=== PATIENT | female | born 1945 | race Caucasian/White ===

== ENCOUNTER → 2017-10-08 | Outpatient (CLI) | payer MEDICARE ==
--- NOTE | 2017-10-09 15:46 | DIREP ---
PROCEDURE: BONE DENSITY PERIPHERAL INDICATIONS: M15.1 OSTEOARTHROSIS COMPARISON: None. FINDINGS: Proximal right femur bone mineral density (BMD) (g/cm2): 0.744 Right Femur T-score (standard deviation relative to young adult mean BMD): -2.1 Right Femur Z-score (standard deviation relative to age-matched control group): -0.2 Proximal left femur bone mineral density (BMD) (g/cm2): 0.702 Left Femur T-score (standard deviation relative to young adult mean BMD): -2.4 Left Femur Z-score (standard deviation relative to age-matched control group): - 0.5 Lumbar (L1-L4) bone mineral density (BMD) (g/cm2): 1.087 Lumbar T-score (standard deviation relative to young adult mean BMD): -0.9 Lumbar Z-score (standard deviation relative to age-matched control group): 1.3 VFA T8-L3: Mild levoscoliosis. FRAX 10-Year Probability of Fracture: Major Osteoporotic Fracture: 14.2% Hip Fracture: 4.4% Change since prior exam (%): Femur: Not applicable. Spine: Not applicable. Change since oldest prior exam (%): Femur: Not applicable. Spine: Not applicable. CONCLUSION: 1. Osteopenia bilateral hips. 2. Normal bone mineral density lumbar spine. *Note: The Z-score is provided for informational purposes. The T-score is preferable for clinical decisions. When comparing exams, a change of >4% is considered statistically significant. SUGGESTED RECOMMENDATIONS: Normal & Osteopenia: Consideration should be given to use of calcium supplementation, daily multiple vitamins and adequate exercise, as preventive measures against osteoporosis, if clinically indicated. Osteoporosis & Severe Osteoporosis: In addition to the above, consideration should be given to medical therapy against osteoporosis, if clinically indicated. Dictated by: Louie Rico M.D. on 10/08/2017 at 03:28 PM [facility]ENTERLotus
== END | disposition home or self-care (01) ==
LOC: BD 13:08
PROVIDERS: ATTEND Specialist
DX: M85.88 Other specified disorders of bone density and structure, other site (principal); M15.1 Heberden's nodes (with arthropathy); M47.22 Other spondylosis with radiculopathy, cervical region; M20.11 Hallux valgus (acquired), right foot; M20.12 Hallux valgus (acquired), left foot; G56.23 Lesion of ulnar nerve, bilateral upper limbs; G25.81 Restless legs syndrome; K58.9 Irritable bowel syndrome, unspecified; M35.00 Sjogren syndrome, unspecified
CPT/HCPCS: 77080